=== PATIENT | female | born 1980 | race Caucasian/White ===

== ENCOUNTER 2021-04-14 18:21 | Emergency (ER) | payer OTHER ==
[~2021-04-14] VITALS: Ht 154.9 cm; Wt 81.3 kg
[2021-04-14 18:30] VITALS: BP 136/88
--- NOTE | 2021-04-14 18:47 | PHYS DOC ---
Adult General Chief Complaint Chief Complaint: ANKLE PROBLEM HPI HPI Patient is a 40-year-old female with a past medical history significant for left-sided broken ankle with hardware in place who presents for left ankle pain after twisting it while walking and stepping on a rock. States that pain is 6 out of 10, sharp in nature. States she is still able to walk but it causes discomfort. Denies any other injuries. Review of Systems Review of Systems Constitutional: Denies fever or chills [] Eyes: Denies change in visual acuity, redness, or eye pain [] HENT: Denies nasal congestion or sore throat [] Respiratory: Denies cough or shortness of breath [] Cardiovascular: No additional information not addressed in HPI [] GI: Denies abdominal pain, nausea, vomiting, bloody stools or diarrhea [] : Denies dysuria or hematuria [] Musculoskeletal: Denies back pain or joint pain [] Integument: Denies rash or skin lesions [] Neurologic: Denies headache, focal weakness or sensory changes [] Endocrine: Denies polyuria or polydipsia [] All other systems were reviewed and found to be within normal limits, except as documented in this note. Allergies Allergies Allergies Coded Allergies Type Severity Reaction Last Updated Verified No Known Drug Allergies 04/14/21 No Physical Exam Physical Exam Constitutional: Well developed, well nourished, no acute distress, non-toxic appearance. [] HENT: Normocephalic, atraumatic, bilateral external ears normal, oropharynx moist, no oral exudates, nose normal. [] Cardiovascular:Heart rate regular rhythm, no murmur [] Lungs & Thorax: No respiratory distress Extremities: Mild tenderness about the left ankle with mild swelling and no contusions or deformities noted. Neurovascular exam intact. Limited range of motion, but at baseline per patient due to hardware. Neurologic: Alert and oriented X 3, no focal deficits noted. [] Psychologic: Affect normal, judgement normal, mood normal. [] EKG EKG [] Radiology/Procedures Radiology/Procedures []Left ankle 3 views. HISTORY: Rolled ankle, trauma 3 views were taken left ankle. There is not evidence of an acute fracture or osseous abnormality. IMPRESSION: 1. No acute fracture noted in the left ankle. Electronically signed by: Giancarlo Ca MD (04/14/2021 7:00 PM) [facility] Heart Score C/O Chest Pain: N/A Risk Factors: Risk Factors: DM, Current or recent (<one month) smoker, HTN, HLP, family history of CAD, obesity. Risk Scores: Risk Factors: DM, Current or recent (<one month) smoker, HTN, HLP, family history of CAD, obesity. Course & Med Decision Making Course & Med Decision Making Patient is a 40-year-old female presents with left ankle pain after twisting it Vital signs not concerning. Physical exam noted above. Given ice and [place]. Imaging noted above with no acute osseous abnormalities. Patient able to ambulate without issue. Gave pain recommendations at home. Advised to follow-up with primary care as needed. Gave return precautions to the ED. Patient grateful, verbalized understanding and agreed with plan of discharge. [] Dragon Disclaimer Dragon Disclaimer This electronic medical record was generated, in whole or in part, using a voice recognition dictation system. Departure Departure: Impression: Primary Impression: Left ankle pain Disposition: HOME / SELF CARE / HOMELESS Condition: GOOD Referrals: NON,STAFF (PCP) Patient Instructions: RICE - Routine Care for Injuries Additional Instructions: Please read all the attached information carefully for treatment at home. Please follow-up with your primary care physician as needed. Please come back to the ED with new or concerning symptoms as discussed. DIANA MARTINEZ MD April 14, 2021 18:47
--- NOTE | 2021-04-14 19:03 | RAD ---
Left ankle 3 views. HISTORY: Rolled ankle, trauma 3 views were taken left ankle. There is not evidence of an acute fracture or osseous abnormality. IMPRESSION: 1. No acute fracture noted in the left ankle. Electronically signed by: Giancarlo Ca MD (04/14/2021 7:00 PM) [email or web address]
[2021-04-14] MEDS ORDERED: HYDROcodone/APAP 5/325MG 1 TAB TABLET PO ONE (19:15)
== END 2021-04-14 19:15 | disposition home or self-care (01) ==
LOC: ER 18:21
DX: M25.572 Pain in left ankle and joints of left foot (principal); W22.8XXA Striking against or struck by other objects, initial encounter; Y93.89 Activity, other specified; Y92.89 Other specified places as the place of occurrence of the external cause; Y99.8 Other external cause status
CPT/HCPCS: 73610; 99283